=== PATIENT | male | born 2000 | race Caucasian/White ===

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

== ENCOUNTER 2022-07-27 11:47 | Outpatient (REF) | payer OTHER, SELFPAY ==
[2022-07-27 13:16] LABS: Hematocrit 48.8 % (42.0-52.0); Hemoglobin 16.7 g/dl (14.0-18.0); Mean Corpuscular HGB Conc 34.2 g/dl (31.0-36.0); Mean Corpuscular Hemoglobin 30.1 pg (27.0-33.0); Mean Corpuscular Volume 87.9 fL (80.0-98.0); Mean Platelet Volume 10.3 fL (9.4-12.4); Platelet Count 277 X10*3/uL (160-400); Red Blood Count 5.55 X10*6/uL (4.60-5.80); Red Cell Distribution Width 12.6 % (11.0-16.0)
[2022-07-27 13:47] LABS: Alanine Aminotransferase 37 U/L (0-40); Albumin Level 4.6 g/dL (3.5-5.0); Alkaline Phosphatase 110 U/L (39-117); Anion Gap 13 (12-20); Aspartate Amino Transferase 29 U/L (5-37); Bilirubin Total 1.2 mg/dL (0.0-1.0); Blood Urea Nitrogen 11 mg/dL (9-16); Carbon Dioxide 26 mmol/L (22-29); Chloride 108 mmol/L (96-108); Estimated Glomerular Filt Rate > 60; Glucose Fasting 86 mg/dL (60-99); Potassium 4.9 mmol/L (3.3-5.1); Sodium 142 mmol/L (135-145); Total Protein 7.3 g/dL (6.5-8.0)
== END 2022-07-27 11:48 | disposition home or self-care (01) ==
LOC: HO.LAB 11:47
PROVIDERS: PCP Physician Assistant; Visit Provider Physician Assistant
DX: Z13.1 Encounter for screening for diabetes mellitus (principal); F32.A Depression, unspecified
CPT/HCPCS: 36415; 80053; 85027

== ENCOUNTER 2022-09-06 19:13 | Emergency (ER) | payer OTHER, SELFPAY ==
--- NOTE | 2022-09-06 19:34 | ED_ITS ---
HPI - General Adult General Chief complaint: Dizziness Stated complaint: lightheaded ears ringing Time Seen by Provider: 09/06/22 23:21 Source: patient, RN notes reviewed and old records reviewed Mode of arrival: ambulatory Limitations: no limitations History of Present Illness HPI narrative: 22-year-old male presents for evaluation of ?ringing in the ears and lightheadedness. ? Patient has a history of ADD. Starting back in October he started have side effects to his previously prescribed Adderall The medication was subsequently changed to he believes to be Ritalin He reports having had side effects with that as well He was started on your propria on 100 mg daily a few months ago He reports that this has not been helping his ADD symptoms so his doctor had him increase the dose to 300 mg daily This was 5 days ago on Saturday The patient reports that starting 3 days ago he started to have ringing in both of his ears He denies any difficulty hearing or pain in the ears Patient states that 2-3 hours prior to arrival he had an episode of lightheadedness which has since subsided Denies any pain anywhere Related Data Previous Rx's Medication Instructions Recorded bupropion HCl 300 mg 24 hr tablet, 300 mg PO QAM #30 tabs 08/16/22 extended release (Wellbutrin XL) Allergies Allergy/AdvReac Type Severity Reaction Status Date / Time amphetamine [From Adderall] AdvReac Intermediate Fatigued Verified 08/16/22 14:15 dextroamphetamine AdvReac Intermediate Fatigued Verified 08/16/22 14:15 [From Adderall] atomoxetine [From Strattera] AdvReac Mild sexual Verified 08/16/22 14:15 side effects Review of Systems Constitutional: Constitutional: Reports as per HPI, Denies chills, Denies fatigue, Denies fever(s) and Denies headache(s) ENT: Denies otalgia, Denies headache(s), Denies hearing loss and Reports tinnitus Cardiovascular: Cardiovascular: Denies chest pain and Denies dyspnea Respiratory: Respiratory: Denies cough and Denies dyspnea Gastrointestinal: Gastrointestinal: Denies abdominal pain, Denies constipation and Denies vomiting Genitourinary: Genitourinary: Denies difficulty urinating and Denies dysuria Neurologic: Denies headache(s) and Denies focal weakness Endocrine: Endocrine: Denies fatigue PMF Past Medical History Medical History Attention deficit hyperactivity disorder evaluation Surgical History No pertinent past surgical history Family History Family History Father Kidney stone Mother In good health Brother In good health Sister In good health Paternal Grandfather Kidney stone Melanoma Testicular cancer Social History Social History Housing: House Alcohol intake: never Patient Tobacco Use Status: Never used Tobacco e-Cigarette/Vaping Use: Never Used Second Hand Smoke Exposure: No Advance Directives: No Advance Directives Information Provided: Yes service: No Current occupational status: employed Current occupational exposures/hazards: No Cognitive needs: No Hearing needs: No Vision needs: Yes Physical Exam ED Vital Signs: Vital Signs - 24 hr 09/06/22 19:45 Temperature 98.4 F Pulse Rate 97 Respiratory Rate 18 Blood Pressure 149/96 H Pulse Oximetry 98 Oxygen Delivery Method Room Air BMI result Body Mass Index 24.4 Const General: healthy appearing, comfortable, no acute distress, alert and awake Nutritional Appearance: well nourished Orientation/consciousness: patient oriented x3 HENMT Other: There is moderate cerumen impaction of the left ear canal. The visualized portion of the left panic membrane is without abnormality including bulging, erythema. Head: Yes normocephalic and Yes atraumatic Ears: TM normal on the right and TM normal on the left Eyes Eyelids: Yes eyelids normal Conjunctivae: conjunctivae normal Sclerae: sclerae normal Corneas: corneas normal Pupils: Equal, round and reactive pupils present EOM: EOMs intact bilaterally Neck Neck: Yes full ROM Resp Effort & Inspection: normal respiratory effort, able to speak in complete sentences and not labored Skin General skin exam: no rashes or lesions noted and elasticity normal Neuro General: patient oriented x3 Cranial nerves: Yes Equal, round and reactive pupils present and Yes Bilaterally intact EOM present Cognition (Neuro): normal cognition Extrem Other: Moving all extremities well without any obvious deformities Course Course Course Narrative: This is a rapid medical exam: Additional HPI, ROS, PE not included below will be deferred to primary provider. Patient is a 22-year-old male with history of ADHD, MDD, RENNY presenting to the emergency department with complaint of ringing in both ears and today began to develop dizziness/lightheadedness. Denies any headache or vision changes. Reports difficulty focusing on texts on phone. Denies any nausea or vomiting. Reports recently increased dose of bupropion XL one week ago which he is taking for his ADD. Plan: labs, UA Medical Decision Making Medical Decision Making [facility] Narrative: 22-year-old male presents for evaluation of an episode of lightheadedness as well as tinnitus. He had a negative workup in the emergency department today. He is currently asymptomatic in regards to his lightheadedness but still has some ringing in the ears. This is likely attributed to his recent increase in Wellbutrin which was discussed with the patient. He will talk to his doctor tomorrow morning in regards to how to proceed with the medication but I instructed him to not take the medication the morning until he can talk to his [facility] doctor Differential Diagnosis Labyrinthitis Tinnitus Anxiety Otitis media Otitis externa Medication side-effect Lab Data [facility] Lab Attestation statement: I reviewed the patient's lab results. (No leukocytosis, no anemia. BMP within normal limits) 09/06/22 20:40 09/06/22 20:41 Labs: Lab Results 09/06/22 09/06/22 09/06/22 Range/Units 20:40 20:40 20:41 WBC 7.6 (4.8-10.8) X10*3/uL RBC 5.48 (4.60-5.80) X10*6/uL Hgb 16.7 (14.0-18.0) g/dl Hct 47.4 (42.0-52.0) % MCV 86.5 (80.0-98.0) fL MCH 30.5 (27.0-33.0) pg MCHC 35.2 (31.0-36.0) g/dl RDW 12.6 (11.0-16.0) % Plt Count 287 (160-400) X10*3/uL MPV 9.9 (9.4-12.4) fL Immature Gran % (Auto) 0.8 H (0.0-0.4) % Neut % (Auto) 62.8 (45-73) % Lymph % (Auto) 26.1 (20-40) % [place] % (Auto) 8.8 (2-11) % Eos % (Auto) 1.1 (0-4) % Baso % (Auto) 0.4 (0-2) % Lymph # (Auto) 2.0 (1.2-4.9) X10*3/uL [place] # (Auto) 0.7 (0.1-1.2) X10*3/uL Eos # (Auto) 0.1 (0.0-0.4) X10*3/uL Baso # (Auto) 0.0 (0.0-0.2) X10*3/uL Abs Immat Gran (auto) 0.06 H (0.00-0.03) X10*3/uL Absolute Neuts (auto) 4.8 (2.0-8.3) x10*3/uL Absolute Nucleated RBC 0.000 (0.0-0.012) X10*3/uL Nucleated RBC % (auto) 0.0 (0.0-0.2) /100WBC Sodium 138 (135-145) mmol/L Potassium 4.2 (3.3-5.1) mmol/L Chloride 106 (96-108) mmol/L Carbon Dioxide 24 (22-29) mmol/L Anion Gap 12 (12-20) BUN 12 (9-16) mg/dL Creatinine 0.99 (0.5-1.4) mg/dL Estim Creat Clear Calc 121.8 Estimated GFR > 60 Random Glucose 102 (60-115) mg/dL Calcium 9.8 (8.4-10.2) mg/dL Urine Color Yellow Urine Appearance Clear Urine pH 6.0 (5.0-9.0) Ur Specific [place] 1.020 (1.005-1.025) Urine Protein Negative (Neg-Trace) mg/dL Urine Glucose (UA) Negative (Negative) mg/dL Urine Ketones Negative (Negative) mg/dL Urine Blood Trace H (Negative) Urine Nitrite Negative (Negative) Ur Leukocyte Esterase Negative (Negative) Urine RBC 3-5 H (0-2) /HPF Urine WBC 0-5 (0-5) /HPF Ur Squamous Epith Cells 0-2 (0-2) /HPF Urine Bacteria None Seen (None Seen) Hyaline Casts 0-2 (0-2) /LPF Discharge Plan Discharge Clinical Impression: Bilateral tinnitus, Episodic lightheadedness Patient Disposition: Home, Self-Care Instructions: Tinnitus (ED), Lightheadedness (ED) Additional Instructions: Your workup in the emergency department today was reassuring. You do have a moderate amount of ear wax buildup in your left ear This is likely a coincidence as it should not be contributing to your tinnitus The tinnitus is likely from the increase in Wellbutrin as this is a known side effect of this medication Call your primary doctor in the morning to discuss the side effects with him and how to proceed with your treatment for ADD Prescriptions: No Action bupropion HCl [Wellbutrin XL] 300 mg tablet extended release 24 hr 300 mg PO QAM Qty: 30 3RF
[2022-09-06 19:45] VITALS: BP 149/96; PULSE 97; RESP 18; TEMP 36.9; O2SAT 98; BMI 24.4
--- NOTE | 2022-09-06 19:49 | PC.NURSE ---
patient was brought in complaining of lightheadedness patient stated it started 2-3 hours ago
[2022-09-06 20:45] LABS: MANUAL DIFF FLAG NO
[2022-09-06 20:46] LABS: Basophils Percent Auto 0.4 % (0-2); Eosinophils Absolute Auto 0.1 X10*3/uL (0.0-0.4); Eosinophils Percent Auto 1.1 % (0-4); Hematocrit 47.4 % (42.0-52.0); Hemoglobin 16.7 g/dl (14.0-18.0); Imm Gran Abs Auto 0.06 X10*3/uL (0.00-0.03); Imm Gran Pct Auto 0.8 % (0.0-0.4); Lymphocytes Percent Auto 26.1 % (20-40); Mean Corpuscular HGB Conc 35.2 g/dl (31.0-36.0); Mean Corpuscular Hemoglobin 30.5 pg (27.0-33.0); Mean Corpuscular Volume 86.5 fL (80.0-98.0); Mean Platelet Volume 9.9 fL (9.4-12.4); Monocytes Absolute Auto 0.7 X10*3/uL (0.1-1.2); Monocytes Percent Auto 8.8 % (2-11); Neutrophils Absolute Auto 4.8 x10*3/uL (2.0-8.3); Neutrophils Percent Auto 62.8 % (45-73); Platelet Count 287 X10*3/uL (160-400); Red Blood Count 5.48 X10*6/uL (4.60-5.80); Red Cell Distribution Width 12.6 % (11.0-16.0); White Blood Count 7.6 X10*3/uL (4.8-10.8)
[2022-09-06 20:47] LABS: Appearance Urine Clear; Color Urine Yellow; Glucose Urine UA Negative (Negative); Leukocyte Esterase Urine Negative (Negative); Nitrite Urine Negative (Negative); UMIC TRIGGER UACC YES; Urine Blood Trace (Negative); Urine Ketones Negative (Negative); Urine Protein Negative (Neg-Trace)
[2022-09-06 20:49] LABS: Bacteria Urine None Seen (None Seen); Hyaline Casts Urine 0-2 /LPF (0-2); Squamous Epithelial Cell Urine 0-2 /HPF (0-2); WBC Urine 0-5 /HPF (0-5)
[2022-09-06 21:03] LABS: Anion Gap 12 (12-20); Blood Urea Nitrogen 12 mg/dL (9-16); Calcium 9.8 mg/dL (8.4-10.2); Carbon Dioxide 24 mmol/L (22-29); Chloride 106 mmol/L (96-108); Creatinine Clr Calc Pharmacy 121.8; Estimated Glomerular Filt Rate > 60; Glucose Random 102 mg/dL (60-115); Potassium 4.2 mmol/L (3.3-5.1); Sodium 138 mmol/L (135-145)
== END 2022-09-07 00:06 | disposition home or self-care (01) ==
PROVIDERS: Registered Nurse Emergency; Emergency Provider Emergency Medicine; PCP Physician Assistant
DX: H93.13 Tinnitus, bilateral (principal); R42 Dizziness and giddiness; Z79.899 Other long term (current) drug therapy
CPT/HCPCS: 36415; 80048; 81001; 85025; 99282; 99283

== ENCOUNTER 2023-07-01 14:52 | Outpatient (AMB) | payer OTHER, SELFPAY ==
[2023-07-01 14:55] VITALS: BP 132/60; PULSE 65; O2SAT 98; BMI 25.2
--- NOTE | 2023-07-01 14:55 | MHC.PC.OV ---
Vital Signs 07/01/23 14:55 Height 5 ft 10 in Weight 175 lb 8 oz BMI 25.2 BP 132/60 Blood Pressure Location Lt brachial Position Sitting Pulse 65 Pulse Source Pulse Oximeter Pulse Oximetry (%) 98 Oxygen Delivery Method Room Air Intake Visit Reasons: depression Heel Curver Required: No Glue Jointer Operator: Not Required per policy Accompanied by: Self / Same As Patient Allergies amphetamine [From Adderall] Adverse Reaction (Intermediate, Verified 07/01/23 15:04) Fatigued dextroamphetamine [From Adderall] Adverse Reaction (Intermediate, Verified 07/01/23 15:04) Fatigued atomoxetine [From Strattera] Adverse Reaction (Mild, Verified 07/01/23 15:04) sexual side effects Medication List - Last Reconciled 07/01/23 by Richmond Rome PA-C No Known Home Meds Tobacco use date assessed: 07/01/23 Dental Screening Dental Screen Date: 07/01/23 Did you have a dental visit in the last 12 months?: Yes Did you have a dental problem in the last 6 months where you did not have access to dental care?: No Was dental information given to patient?: Patient has dentist HPI depression HPI Details Patient is a 22-year-old male here today for follow-up on his depression. Patient has past medical history significant for ADHD, major depressive disorder and anxiety. Was previously Celexa, Adderall, Strattera for depression anxiety though were not effective and caused him side effects. He reports over the last several weeks experiencing signs of depression such as lack of concentration, lack of motivation, low energy, increase appetite. He is interested in restarting mental health medications to help him with his depression and sleep. Concern--> he does report having been told he has microscopic blood in his urine. Does have a history of nephrolithiasis. Otherwise no urination issues. Will recheck urinalysis and a urine cytology. [facility] Medical History Attention deficit hyperactivity disorder evaluation Surgical History No pertinent past surgical history Family History Father Kidney stone Mother In good health Brother In good health Sister In good health Paternal Grandfather Kidney stone Melanoma Testicular cancer Social History Housing: House Alcohol intake: never Patient Tobacco Use Status: Never used Tobacco e-Cigarette/Vaping Use: Never Used Second Hand Smoke Exposure: No service: No Current occupational status: employed Current occupational exposures/hazards: No Cognitive needs: No Hearing needs: No Vision needs: Yes (glasses) Questionnaire PHQ-9 Over the last 2 weeks, how often have you been bothered by any of the following problems? 1. Little interest or pleasure in doing things: nearly every day 2. Feeling down, depressed, or hopeless: several days 3. Trouble falling or staying asleep, or sleeping too much: nearly every day 4. Feeling tired or having little energy: nearly every day 5. Poor appetite or overeating: nearly every day 6. Feeling bad about yourself - or that you are a failure or have let yourself or your family down: nearly every day 7. Trouble concentrating on things, such as reading the newspaper or watching television: nearly every day 8. Moving or speaking so slowly that other people could have noticed. Or the opposite - being so fidgety or restless that you have been moving around a lot more than usual: nearly every day 9. Thoughts that you would be better off or of hurting yourself in some way: not at all Total score: 22 Depression Screening Interpretation: Positive Depression Screening Follow-up: Existing condition and New Medication prescribed Depression Screening Done: Yes 44294 - PHQ-9 Billing: Yes Source: Developed by Drs. Jordy Wilcox, Jasmyn Gilbert, Sami Schaefer and colleagues, with an educational elieser from [employer]. Thrive Questionnaire Date Thrive assessed: 07/01/23 I am a: Patient What is your living situation today?: I have a steady place to live Within the past 12 months, did the food you bought not last and you didn't have the money to get more?: Never true Within the past 12 months, did you worry whether your food would run out before you got money to buy more?: Never true Do you have trouble paying for medicines?: No Do you have trouble getting transportation to medical appointments?: No Do you have trouble paying your heating and electricity bill?: No Do you have trouble taking care of your child, family member or friend?: No Do you have trouble with day-to-day activities such as bathing, preparing meals, shopping, managing finances, etc.?: No Are you currently unemployed and looking for a job?: No Are you interested in more education?: No Please select the resources that you would like help with: None THRIVE Score: 0 AUDIT C Alcohol Use Questionnaire (AUDIT-C) 1. How often do you have a drink containing alcohol?: Never Total Score: 0 RENNY-7 AMB Questionnaire RENNY-7 Date RENNY - 7 assessed: 07/01/23 Feeling nervous, anxious, or on edge: 1 = Several days Not being able to stop or control worryin = Nearly every day Worrying too much about different things: 3 = Nearly every day Trouble relaxin = Nearly every day Being so restless that it is hard to sit still: 3 = Nearly every day Becoming easily annoyed or irritable: 3 = Nearly every day Feeling afraid as if something awful might happen: 3 = Nearly every day Total RENNY-7 score (0-4 normal; 5-9 mild; 10-14 moderate; 15-21 severe): 19 Source: Developed by Drs. Jordy Wilcox, Jasmyn Gilbert, Sami Schaefer and colleagues, with an educational elieser from [employer]. RENNY-7 Assessment Billing RENNY-7 Assessment Tool: RENNY-7 Assessment 38134 Review of Systems Const Denies headache(s) Eyes Denies loss of vision ENT Denies vertigo, Denies dizziness, Denies headache(s) and Denies sore throat Card Denies chest pain, Denies leg edema and Denies lightheadedness Resp Denies cough, Denies hemoptysis and Denies wheezing GI Denies abdominal pain, Denies melena, Denies constipation, Denies diarrhea and Denies vomiting Denies dysuria, Denies urinary frequency and Denies urinary urgency Musc Denies arthralgias, Denies joint swelling, Denies numbness and Denies tingling Neuro Denies Abnormal speech present, Denies behavioral changes, Denies vertigo, Denies dizziness, Denies headache(s), Denies loss of vision, Denies memory loss, Denies numbness and Denies tingling Psych Denies anxiety, Denies behavioral changes, Denies depression, Denies memory loss and Denies panic attacks Pranay/Lymph Denies easy bleeding and Denies easy bruising Aller/Immun Denies wheezing Physical exam (Primary Care) Vital Signs: Last Vital Signs Pulse 65 07/01/23 14:55 BP 132/60 07/01/23 14:55 Pulse Ox 98 07/01/23 14:55 Oxygen Delivery Method Room Air 07/01/23 14:55 BMI result Body Mass Index 25.2 Tobacco/Smoking Status: Tobacco use Status Tobacco use date assessed 07/01/23 07/01/23 14:57 Patient Tobacco Use Status Never used Tobacco 07/01/23 14:57 e-Cigarette/Vaping Use Never Used 07/01/23 14:57 PHQ-9: PHQ-9 Score PHQ-9: Total score 22 07/01/23 15:03 Depression Screening Interpretation: Positive Depression Screening Follow-up: Existing condition and New Medication prescribed Thrive Assessment: Date of Thrive Assessment Date Thrive assessed 07/01/23 07/01/23 14:57 Const General: healthy appearing, no acute distress, alert and awake Nutritional Appearance: well nourished Orientation/consciousness: oriented to person, oriented to place and oriented to time HENMT Ears: TM's normal bilaterally General nose exam: Normal nasal mucous membranes and turbinates present Eyes Conjunctivae: conjunctivae normal Sclerae: sclerae normal Pupils: Equal, round and reactive pupils present Neck Neck: Yes no lymphadenopathy and Yes no JVD Thyroid: Thyroid normal Carotids: no bruits Resp Effort & Inspection: normal respiratory effort and not tachypneic Auscultation: no crackles, no rales, no rhonchi and no wheezes Cardio Rate: regular rate Rhythm: regular rhythm Heart sounds: no murmurs and normal S1 and S2 GI Palpation (GI): Soft to palpation, nontender, no hepatomegaly and no splenomegaly Auscultation: normal bowel sounds Skin General skin exam: no rashes or lesions noted and dry skin Neuro General: oriented to person, oriented to place and oriented to time Cranial nerves: Yes Equal, round and reactive pupils present Speech: No Abnormal speech present Gait exam (Neuro): Normal gait present Motor exam (neuro): no tremor noted Extrem Right upper extremity: full ROM Left upper extremity: full ROM Right lower extremity: full ROM; no edema Left lower extremity: full ROM; no edema Psych Mental Status: mental status grossly normal Speech and movement: Normal speech and movement present Affect: normal affect Attitude: cooperative Thought process: Normal thought process present Assessment and Plan Assessment & Plan (1) MDD (major depressive disorder), recurrent episode, mild: Code(s): F33.0 - Major depressive disorder, recurrent, mild Plan: Patient's PHQ-9 score positive for depression which has been existing condition for him. He has not interested in speaking with a mental health therapist. He has been on multiple mental health medications though have been ineffective for caused side effect. He was interested in restarting Zoloft has it has been somewhat effective for him in the past. (2) RENNY (generalized anxiety disorder): Code(s): F41.1 - Generalized anxiety disorder Plan: Patient's RENNY-7 score positive for anxiety which has been existing condition for him. As above patient willing to restart SSRI therapy (3) Microscopic hematuria: Code(s): R31.29 - Other microscopic hematuria Plan: Does have a history of microscopic hematuria. Will recheck urinalysis and urine cytology. He does report a family history of nephrolithiasis. Orders: Orders Comprehensive [place]. Panel Fast Today Z13.1 - Encounter for screening for diabetes mellitus Urine Cytology Today R31.29 - Other microscopic hematuria TSH reflex Free T4 Today F33.0 - Major depressive disorder, recurrent, mild UA CC w/rflx Micro + Cult Today R30.0 - Dysuria, R31.29 - Other microscopic hematuria Medications: New sertraline (Zoloft) 50 mg PO DAILY 30 days 30 tabs 1RF F33.0 - Major depressive disorder, recurrent, mild hydroxyzine HCl 10 mg PO BEDTIME 30 days 30 tabs 0RF F41.1 - Generalized anxiety disorder, F41.9 - Anxiety disorder, unspecified Coding Level of Care Code Est Pt Level 4 (16789) Diagnoses MDD (major depressive disorder), recurrent episode, mild F33.0 RENNY (generalized anxiety disorder) F41.1 Microscopic hematuria R31.29 Additional Codes RENNY-7 Assessment Billing - RENNY-7 Assessment Tool: RENNY-7 Assessment 40173 ([id number])
== END 2023-07-01 15:20 | disposition home or self-care (01) ==
PROVIDERS: PCP Physician Assistant; Visit Provider Physician Assistant
DX: R31.29 Other microscopic hematuria (principal); F33.0 Major depressive disorder, recurrent, mild; F41.1 Generalized anxiety disorder
CPT/HCPCS: 96127; 99214

== ENCOUNTER 2023-07-23 12:20 | Outpatient (REF) | payer OTHER, SELFPAY ==
[2023-07-23 13:00] LABS: Urine Cytology See Pathology rpt
[2023-07-23 13:09] LABS: Appearance Urine Clear; Color Urine Yellow; Glucose Urine UA Negative (Negative); Leukocyte Esterase Urine Negative (Negative); Nitrite Urine Negative (Negative); PH 8.5 (5.0-9.0); Specific Gravity - Urine 1.015 (1.005-1.025); Urine Blood Negative (Negative); Urine Ketones Negative (Negative); Urine Protein Negative (Neg-Trace)
[2023-07-23 13:39] LABS: Alanine Aminotransferase 28 U/L (0-40); Albumin Level 4.6 g/dL (3.5-5.0); Alkaline Phosphatase 91 U/L (39-117); Anion Gap 10 (12-20); Aspartate Amino Transferase 19 U/L (5-37); Bilirubin Total 0.5 mg/dL (0.0-1.0); Blood Urea Nitrogen 10 mg/dL (9-16); Calcium 9.5 mg/dL (8.4-10.2); Carbon Dioxide 28 mmol/L (22-29); Chloride 105 mmol/L (96-108); Estimated Glomerular Filt Rate > 60; Glucose Fasting 87 mg/dL (60-99); Potassium 3.9 mmol/L (3.3-5.1); Sodium 139 mmol/L (135-145); Total Protein 7.2 g/dL (6.5-8.0)
[2023-07-23 13:54] LABS: TSH reflex Free T4 1.29 uIU/mL (0.32-4.0)
== END 2023-07-23 12:21 | disposition home or self-care (01) ==
LOC: HO.LAB 12:20
PROVIDERS: PCP Physician Assistant; Visit Provider Physician Assistant
DX: Z13.1 Encounter for screening for diabetes mellitus (principal); R30.0 Dysuria; R31.29 Other microscopic hematuria; F33.0 Major depressive disorder, recurrent, mild
CPT/HCPCS: 36415; 80053; 81003; 84443; 88112

== ENCOUNTER 2023-08-15 15:43 | Outpatient (AMB) | payer OTHER, SELFPAY ==
--- NOTE | 2023-08-15 15:42 | A.OFFPC_ITS ---
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 Accompanied by: Self / Same As Patient Allergies amphetamine [From Adderall] Adverse Reaction (Intermediate, Verified 08/15/23 15:53) Fatigued dextroamphetamine [From Adderall] Adverse Reaction (Intermediate, Verified 08/15/23 15:53) Fatigued atomoxetine [From Strattera] Adverse Reaction (Mild, Verified 08/15/23 15:53) sexual side effects Medication List - Last Reconciled 08/15/23 by Richmond Rome PA-C hydroxyzine HCl 10 mg PO BEDTIME 30 days sertraline (Zoloft) 50 mg PO DAILY 30 days Tobacco use date assessed: 07/01/23 Dental Screening Dental Screen Date: 07/01/23 HPI f/u (telehealth) MDD HPI Details Patient is a 22-year-old male being evaluated today via telephone. At last visit we discussed his depression and anxiety and was willing to start depression medication again. Started sertraline 50 mg which was helpful though felt that the effect has plateaued . Also interested in new medication for his ADHD disorder. Has tried Vyvanse and Adderall in the past though felt there was side effects. [facility] Medical History Attention deficit hyperactivity disorder evaluation Surgical History No pertinent past surgical history Family History Father Kidney stone Mother In good health Brother In good health Sister In good health Paternal Grandfather Kidney stone Melanoma Testicular cancer Social History Housing: House Alcohol intake: never Patient Tobacco Use Status: Never used Tobacco e-Cigarette/Vaping Use: Never Used Second Hand Smoke Exposure: No service: No Current occupational status: employed Current occupational exposures/hazards: No Cognitive needs: No Hearing needs: No Vision needs: Yes (glasses) Questionnaire Thrive Questionnaire Date Thrive assessed: 07/01/23 RENNY-7 AMB Questionnaire RENNY-7 Date RENNY - 7 assessed: 07/01/23 Source: Developed by Drs. Jordy Wilcox, Jasmyn Gilbert, Sami Schaefer and colleagues, with an educational elieser from [employer]. Review of Systems Const Denies headache(s) Eyes Denies loss of vision ENT Denies vertigo, Denies dizziness, Denies headache(s) and Denies sore throat Card Denies chest pain, Denies leg edema and Denies lightheadedness Resp Denies cough, Denies hemoptysis and Denies wheezing GI Denies abdominal pain, Denies melena, Denies constipation, Denies diarrhea and Denies vomiting Denies dysuria, Denies urinary frequency and Denies urinary urgency Musc Denies arthralgias, Denies joint swelling, Denies numbness and Denies tingling Neuro Denies behavioral changes, Denies vertigo, Denies dizziness, Denies headache(s), Denies loss of vision, Denies memory loss, Denies numbness and Denies tingling Psych Denies anxiety, Denies behavioral changes, Denies depression, Denies memory loss and Denies panic attacks Pranay/Lymph Denies easy bleeding and Denies easy bruising Aller/Immun Denies wheezing Physical exam (Primary Care) Tobacco/Smoking Status: Tobacco use Status Tobacco use date assessed 07/01/23 08/15/23 15:42 Patient Tobacco Use Status Never used Tobacco 08/15/23 15:42 e-Cigarette/Vaping Use Never Used 08/15/23 15:42 Thrive Assessment: Date of Thrive Assessment Date Thrive assessed 07/01/23 08/15/23 15:42 Telehealth Telehealth Telehealth Platform: Telephone Location of provider rendering services: practice address Location of patient: address on file Patient Identification confirmed using: Name, : Yes Telehealth method: voice only Patient verbally consented to treatment: Yes Patient verbally consented to billing insurance company: Yes Patient informed of any privacy concerns related to visit: Yes Minutes spent on Phone/Video with Pt.: 11 Assessment and Plan Assessment & Plan (1) MDD (major depressive disorder), recurrent episode, mild: Code(s): F33.0 - Major depressive disorder, recurrent, mild Plan: He reports Zoloft has been effective on reducing his depressive symptoms though feels the effect could be better. Will increase the dose of Zoloft 200 mg. He is now interested in establishing with a mental health therapist. (2) Attention deficit hyperactivity disorder evaluation: Code(s): Z13.39 - Encounter for screening examination for other mental health and behavioral disorders Plan: Renard would like to be treated again for his ADHD. Has tried stimulant medication for his ADHD in the past though did have side effects. Will trial guanfacine Orders: Referrals Counseling Referral F33.0 - Major depressive disorder, recurrent, mild Medications: New sertraline (Zoloft) 100 mg PO DAILY 90 tabs 1RF 90 days F33.0 - Major depressive disorder, recurrent, mild guanfacine 1 mg PO DAILY 30 tabs 1RF 30 days Z13.39 - Encounter for screening examination for other mental health and behavioral disorders Discontinued sertraline (Zoloft) Discontinued Reason: Doctor's Order 50 mg PO DAILY 30 days 30 tabs 1RF F33.0 - Major depressive disorder, recurrent, mild Coding Level of Care Code Tele Est Pt Level 4 (99860) Diagnoses MDD (major depressive disorder), recurrent episode, mild F33.0 Attention deficit hyperactivity disorder evaluation Z13.39
== END 2023-08-16 08:54 | disposition home or self-care (01) ==
LOC: HO.HMGH 15:43
PROVIDERS: PCP Physician Assistant; Visit Provider Physician Assistant
DX: F33.0 Major depressive disorder, recurrent, mild (principal); Z13.39 Encounter for screening examination for other mental health and behavioral disorders
CPT/HCPCS: 99214

== ENCOUNTER 2024-02-10 13:42 | Outpatient (AMB) | payer OTHER, SELFPAY ==
[2024-02-10 13:55] VITALS: BP 128/78; PULSE 85; TEMP 36.3; O2SAT 98; BMI 24.7
--- NOTE | 2024-02-10 13:55 | AM.OFFWIN_ITS ---
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 Pt denies any SOB. Pt states he coughs more especially when taking a deep breath. Patient Tobacco Use Status: Never used Tobacco Allergies amphetamine [From Adderall] Adverse Reaction (Intermediate, Verified 02/10/24 13:56) Fatigued dextroamphetamine [From Adderall] Adverse Reaction (Intermediate, Verified 02/10/24 13:56) Fatigued atomoxetine [From Strattera] Adverse Reaction (Mild, Verified 02/10/24 13:56) sexual side effects HPI AUDIO SPECIALIST cough for several weeks HPI Details This note is constructed using voice recognition software. While every effort has been made to ensure accuracy, four slide machine setter errors may have been included. The patient is a 23 year old male who presents to the clinic today with cough for the past several weeks. He reports that his brother was recently sick coronavirus, he shortly developed upper respiratory infection shortly after that. The majority of his symptoms have resolved, but he is left with a dry cough, worse in the morning or at bedtime. He denies fever, chills, shortness of breath. He has tried cough syrup which has not worked. Additionally he has report of a GI bug that kept him out of work last through Saturday. He is requesting a letter for work for that. He reports those symptoms have completely resolved. [facility] Medical History Attention deficit hyperactivity disorder evaluation Surgical History No pertinent past surgical history Family History Father Kidney stone Mother In good health Brother In good health Sister In good health Paternal Grandfather Kidney stone Melanoma Testicular cancer Social History Housing: House Alcohol intake: never Patient Tobacco Use Status: Never used Tobacco e-Cigarette/Vaping Use: Never Used Second Hand Smoke Exposure: No service: No Current occupational status: employed Current occupational exposures/hazards: No Cognitive needs: No Hearing needs: No Vision needs: Yes (glasses) Review of Systems Const All systems reviewed & are unremarkable except as noted in HPI and below Physical Exam Vital Signs: Last Vital Signs Temp 97.4 F 02/10/24 13:55 Pulse 85 02/10/24 13:55 BP 128/78 02/10/24 13:55 Pulse Ox 98 02/10/24 13:55 Oxygen Delivery Method Room Air 02/10/24 13:55 BMI result Body Mass Index 24.7 Const General: cooperative, healthy appearing, comfortable and no acute distress Orientation/consciousness: patient oriented x3 Limitations: no limitations HEENT Head: Yes normal to inspection Ears: hearing grossly normal bilaterally, external ears normal and TM abnormal retracted General nose exam: Normal external nose present, No nasal discharge present and Abnormal mucous membranes and turbinates present boggy and pale Face and sinus: Yes normal facial exam and Yes sinuses nontender Mouth: Normal oral and palatal mucosa present and moist mucous membranes Throat: Yes tonsils normal, Yes uvula midline, Yes posterior oropharynx abnormal (Erythema), Yes postnasal drainage and Yes cobblestoning Eyes General: appearance normal, both eyes and all related structures Neck Neck: Yes normal visual inspection Resp Effort & Inspection: normal respiratory effort, able to speak in complete sentences, Actively coughing, no respiratory distress, not tachypneic, no tripod positioning and no use of accessory muscles Auscultation: clear to auscultation bilaterally Cardio Rate: regular rate Rhythm: regular rhythm Heart sounds: normal S1 and S2 Skin General skin exam: no rashes or lesions noted Neuro General: patient oriented x3 Extrem General: Yes normal to inspection and Yes no clubbing, cyanosis or edema Assessment & Plan Assessment & Plan (1) Cough: Code(s): R05.9 - Cough, unspecified Qualifiers: Cough type: subacute Qualified Code(s): R05.2 - Subacute cough Plan: X-ray/imaging not indicated at this time. Likely post viral. Supportive measures encouraged and reviewed. Advised patient to try a Flonase nasal spray and second-generation antihistamine such as Zyrtec, Claritin, Harriett or simil ar. Advised consideration of sinus rinse if needed. Advised patient to follow up with primary care provider with worsening or failure to resolve. Plan See above for full details and plan. Coding Level of Care Code Est Pt Level 3 (76866) Diagnoses Subacute cough R05.2 Cough type: subacute
== END 2024-02-10 14:50 | disposition home or self-care (01) ==
PROVIDERS: PCP Physician Assistant; Visit Provider Registered Nurse
DX: R05.2 Subacute cough (principal)

== ENCOUNTER 2024-04-14 15:28 | Outpatient (AMB) | payer OTHER, SELFPAY ==
[2024-04-14 15:43] VITALS: BP 124/70; PULSE 72; TEMP 36.5; O2SAT 98; BMI 25.7
--- NOTE | 2024-04-14 15:43 | A.OFFPC_ITS ---
Vital Signs 04/14/24 15:43 Height 5 ft 10 in Weight 179 lb 6 oz BMI 25.7 BP 124/70 Blood Pressure Location Lt brachial Position Sitting Pulse 72 Pulse Source Pulse Oximeter Temp 97.7 F Temp Source Temporal Artery Scan Pulse Oximetry (%) 98 Oxygen Delivery Method Room Air Intake Visit Reasons: injury to penis Assistant To The Ceo Required: No Accompanied by: Self / Same As Patient Allergies amphetamine [From Adderall] Adverse Reaction (Intermediate, Verified 04/14/24 15:53) Fatigued dextroamphetamine [From Adderall] Adverse Reaction (Intermediate, Verified 04/14/24 15:53) Fatigued atomoxetine [From Strattera] Adverse Reaction (Mild, Verified 04/14/24 15:53) sexual side effects Medication List - Last Reconciled 04/14/24 by Richmond Rome PA-C No Known Home Meds Tobacco use date assessed: 07/01/23 Dental Screening Dental Screen Date: 07/01/23 HPI injury to penis HPI Details The patient is a 23-year-old male presenting with concerns of penile curvature and a snapping sensation experienced recently. Last Saturday, while masturbating, the patient felt a pop or snap in the area of the penis, although it was minor. The patient reports a curvature to the left side. He denies difficulty with urination, no presence of blood in urine, and reports normal ejaculation. The patient suspects it may be Peyronie's disease, which he has heard of before. He has opted not to see a urologist at this time. Additionally, the patient experiences anxiety that has been persistent and exacerbated by the concern of penile curvature. He reports no current use of anxiety medication, having discontinued previous ineffective treatments. He is actively seeking a psychiatrist. [facility] Medical History Attention deficit hyperactivity disorder evaluation Surgical History No pertinent past surgical history Family History Father Kidney stone Mother In good health Brother In good health Sister In good health Paternal Grandfather Kidney stone Melanoma Testicular cancer Social History Housing: House Alcohol intake: never Patient Tobacco Use Status: Never used Tobacco e-Cigarette/Vaping Use: Never Used Second Hand Smoke Exposure: No service: No Current occupational status: employed Current occupational exposures/hazards: No Cognitive needs: No Hearing needs: No Vision needs: Yes (glasses) Questionnaire PHQ-9 Over the last 2 weeks, how often have you been bothered by any of the following problems? 1. Little interest or pleasure in doing things: several days 2. Feeling down, depressed, or hopeless: several days 3. Trouble falling or staying asleep, or sleeping too much: more than half the days 4. Feeling tired or having little energy: more than half the days 5. Poor appetite or overeating: more than half the days 6. Feeling bad about yourself - or that you are a failure or have let yourself or your family down: several days 7. Trouble concentrating on things, such as reading the newspaper or watching television: more than half the days 8. Moving or speaking so slowly that other people could have noticed. Or the op posite - being so fidgety or restless that you have been moving around a lot more than usual: several days 9. Thoughts that you would be better off or of hurting yourself in some way: not at all Total score: 12 Depression Screening Interpretation: Positive Depression Screening Follow-up: Existing condition and Community Mental Health Worker F/U Depression Screening Done: Yes 15905 - PHQ-9 Billing: Yes Source: Developed by Drs. Jordy Wilcox, Jasmyn Gilbert, Sami Schaefer and colleagues, with an educational elieser from [employer]. Thrive Questionnaire Date Thrive assessed: 04/14/24 I am a: Patient What is your living situation today?: I have a steady place to live Within the past 12 months, did the food you bought not last and you didn't have the money to get more?: Never true Within the past 12 months, did you worry whether your food would run out before you got money to buy more?: Never true Do you have trouble paying for medicines?: No Do you have trouble getting transportation to medical appointments?: No Do you have trouble paying your heating and electricity bill?: No Do you have trouble taking care of your child, family member or friend?: No Do you have trouble with day-to-day activities such as bathing, preparing meals, shopping, managing finances, etc.?: No Are you currently unemployed and looking for a job?: No Are you interested in more education?: No Please select the resources that you would like help with: None Currently or been in a relationship where the following occur: No concerns reported THRIVE Score: 0 AUDIT C Alcohol Use Questionnaire (AUDIT-C) 2. How many drinks containing alcohol do you have on a typical day when you are drinking?: 1 or 2 3. How often do you have six or more drinks on one occasion?: Never Total Score: 0 RENNY-7 AMB Questionnaire RENNY-7 Date RENNY - 7 assessed: 04/14/24 Feeling nervous, anxious, or on edge: 3 = Nearly every day Not being able to stop or control worryin = Nearly every day Worrying too much about different things: 2 = More than half the days Trouble relaxin = More than half the days Being so restless that it is hard to sit still: 2 = More than half the days Becoming easily annoyed or irritable: 2 = More than half the days Feeling afraid as if something awful might happen: 2 = More than half the days Total RENNY-7 score (0-4 normal; 5-9 mild; 10-14 moderate; 15-21 severe): 16 Source: Developed by Drs. Jordy Wilcox, Jasmyn Gilbert, Sami Schaefer and colleagues, with an educational elieser from [employer] RENNY-7 Assessment Billing RENNY-7 Assessment Tool: RENNY-7 Assessment 47424 Review of Systems Const Denies headache(s) Eyes Denies loss of vision ENT Denies vertigo, Denies dizziness, Denies headache(s) and Denies sore throat Card Denies chest pain, Denies leg edema and Denies lightheadedness Resp Denies cough, Denies hemoptysis and Denies wheezing GI Denies abdominal pain, Denies melena, Denies constipation, Denies diarrhea and Denies vomiting Denies dysuria, Denies urinary frequency and Denies urinary urgency Musc Denies arthralgias, Denies joint swelling, Denies numbness and Denies tingling Neuro Denies Abnormal speech present, Denies behavioral changes, Denies vertigo, Denies dizziness, Denies headache(s), Denies loss of vision, Denies memory loss, Denies numbness and Denies tingling Psych Denies anxiety, Denies behavioral changes, Denies depression, Denies memory loss and Denies panic attacks Pranay/Lymph Denies easy bleeding and Denies easy bruising Aller/Immun Denies wheezing Physical exam (Primary Care) Vital Signs: Last Vital Signs Temp 97.7 F 04/14/24 15:43 Pulse 72 04/14/24 15:43 BP 124/70 04/14/24 15:43 Pulse Ox 98 04/14/24 15:43 Oxygen Delivery Method Room Air 04/14/24 15:43 BMI result Body Mass Index 25.7 Tobacco/Smoking Status: Tobacco use Status Tobacco use date assessed 07/01/23 04/14/24 15:43 Patient Tobacco Use Status Never used Tobacco 04/14/24 15:43 e-Cigarette/Vaping Use Never Used 04/14/24 15:43 PHQ-9: PHQ-9 Score PHQ-9: Total score 12 04/14/24 16:03 Depression Screening Interpretation: Positive Depression Screening Follow-up: Existing condition and Community Mental Health Worker F/U Thrive Assessment: Date of Thrive Assessment Date Thrive assessed 04/14/24 04/14/24 15:51 Currently or been in a relationship where the following occur: No concerns repo rted Const General: healthy appearing, no acute distress, alert and awake Nutritional Appearance: well nourished Orientation/consciousness: oriented to person, oriented to place and oriented to time HENMT Ears: TM's normal bilaterally General nose exam: Normal nasal mucous membranes and turbinates present Eyes Conjunctivae: conjunctivae normal Sclerae: sclerae normal Pupils: Equal, round and reactive pupils present Neck Neck: Yes no lymphadenopathy and Yes no JVD Thyroid: Thyroid normal Carotids: no bruits Resp Effort & Inspection: normal respiratory effort and not tachypneic Auscultation: no crackles, no rales, no rhonchi and no wheezes Cardio Rate: regular rate Rhythm: regular rhythm Heart sounds: no murmurs and normal S1 and S2 GI Palpation (GI): Soft to palpation, nontender, no hepatomegaly and no sple nomegaly Auscultation: normal bowel sounds Skin General skin exam: no rashes or lesions noted and dry skin Neuro General: oriented to person, oriented to place and oriented to time Cranial nerves: Yes Equal, round and reactive pupils present Speech: No Abnormal speech present Gait exam (Neuro): Normal gait present Motor exam (neuro): no tremor noted Extrem Right upper extremity: full ROM Left upper extremity: full ROM Right lower extremity: full ROM; no edema Left lower extremity: full ROM; no edema Psych Mental Status: mental status grossly normal Speech and movement: Normal speech and movement present Affect: normal affect Attitude: cooperative Thought process: Normal thought process present Coding Level of Care Code Est Pt Level 4 (11436) Diagnoses Peyronie's syndrome N48.6 MDD (major depressive disorder), recurrent episode, mild F33.0 RENNY (generalized anxiety disorder) F41.1 Additional Codes RENNY-7 Assessment Billing - RENNY-7 Assessment Tool: RENNY-7 Assessment 06622 ([id number]) PHQ-9 - 12947 - PHQ-9 Billing: Yes ([id number]) Assessment & Plan Assessment & Plan (1) Peyronie's syndrome: Code(s): N48.6 - Induration penis plastica Category: Medical Plan: we discussed the patient's concern regarding the penile curvature, suspecting Peyronie's Disease, based on the symptoms of a leftward curvature following a snapping sensation. I offered a referral to a urologist, but the patient opted to wait since he is not experiencing significant pain. We discussed potential management options including specialist evaluation and possible non-surgical treatments (2) MDD (major depressive disorder), recurrent episode, mild: Code(s): F33.0 - Major depressive disorder, recurrent, mild Category: Medical Plan: Patient continues to suffer with depression and anxiety. Has tried many mental health medications including meds for ADHD though have not been effective. He is interested in seeing a psychiatrist for formal diagnosis and medication recommendations. (3) RENNY (generalized anxiety disorder): Code(s): F41.1 - Generalized anxiety disorder Category: Medical Plan: Patient's RENNY-7 score positive for anxiety which has been existing condition for him. Has tried SSRIs in the past though have not been effective. Has also tried ADHD medication for to help him with his attention focus though seem to have caused him side effects. He is willing to talk to a psychiatric professional about proper diagnosis and treatment for his psychiatric disorders. Orders: Orders Comprehensive [place]. Panel Fast 04/14/24 Z13.1 - Encounter for screening for diabetes mellitus UA CC w/rflx Micro + Cult 04/14/24 R30.0 - Dysuria, R31.29 - Other microscopic hematuria Referrals Psychiatry Outpatient Consultation Service F33.0 - Major depressive disorder, recurrent, mild
== END 2024-04-14 16:07 | disposition home or self-care (01) ==
PROVIDERS: PCP Physician Assistant; Visit Provider Physician Assistant
DX: N48.6 Induration penis plastica (principal); F33.0 Major depressive disorder, recurrent, mild; F41.1 Generalized anxiety disorder

== ENCOUNTER → 2024-04-14 15:28 | Outpatient (BNVA) | payer OTHER, SELFPAY | PROVIDERS: PCP Physician Assistant; Visit Provider Physician Assistant | DX: N48.6 Induration penis plastica (principal); F33.0 Major depressive disorder, recurrent, mild; F41.1 Generalized anxiety disorder | CPT/HCPCS: 96127 ==

== ENCOUNTER 2024-08-12 14:23 | Outpatient (AMB) | payer OTHER, SELFPAY ==
--- NOTE | 2024-08-12 14:36 | MHC.PC.OV ---
Vital Signs 08/12/24 14:37 Height 5 ft 10 in Weight 173 lb 9 oz BMI 24.9 BP 122/82 Blood Pressure Location Lt brachial Position Sitting Pulse 92 Pulse Source Pulse Oximeter Temp 97.1 F Temp Source Temporal Artery Scan Pulse Oximetry (%) 97 Oxygen Delivery Method Room Air Intake Visit Reasons: Annual Exam Log Chain Worker Required: No Accompanied by: Self / Same As Patient Allergies amphetamine (From Adderall) Adverse Reaction (Intermediate, Verified 08/12/24 15:08) Fatigued dextroamphetamine (From Adderall) Adverse Reaction (Intermediate, Verified 08/12/24 15:08) Fatigued atomoxetine (From Strattera) Adverse Reaction (Mild, Verified 08/12/24 15:08) sexual side effects Medication List - Last Reconciled 08/12/24 by Richmond Rome PA-C No Known Home Meds Tobacco use date assessed: 08/12/24 Dental Screening Dental Screen Date: 08/12/24 Did you have a dental visit in the last 12 months?: Yes Did you have a dental problem in the last 6 months where you did not have access to dental care?: No Was dental information given to patient?: Patient has dentist HPI Annual Exam HPI Details Patient is a 23-year-old male here today for annual physical. Patient does have a history of mental health disorder to which he has tried multiple medications though have not been effective for him. 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 Vaccnine : needs Tdap [facility] Medical History Attention deficit hyperactivity disorder evaluation Surgical History No pertinent past surgical history Family History Father Kidney stone Mother In good health Brother In good health Sister In good health Paternal Grandfather Kidney stone Melanoma Testicular cancer Social History Housing: House Alcohol intake: current Alcohol intake frequency: holidays/special occasions only Patient Tobacco Use Status: Never used Tobacco e-Cigarette/Vaping Use: Never Used Second Hand Smoke Exposure: No service: No Current occupational status: employed Current occupational exposures/hazards: No Cognitive needs: No Hearing needs: No Vision needs: Yes (glasses) Questionnaire PHQ-9 Over the last 2 weeks, how often have you been bothered by any of the following problems? 1. Little interest or pleasure in doing things: not at all 2. Feeling down, depressed, or hopeless: several days 3. Trouble falling or staying asleep, or sleeping too much: nearly every day 4. Feeling tired or having little energy: more than half the days 5. Poor appetite or overeating: nearly every day 6. Feeling bad about yourself - or that you are a failure or have let yourself or your family down: several days 7. Trouble concentrating on things, such as reading the newspaper or watching television: several days 8. Moving or speaking so slowly that other people could have noticed. Or the opposite - being so fidgety or restless that you have been moving around a lot more than usual: more than half the days 9. Thoughts that you would be better off or of hurting yourself in some way: not at all Total score: 13 Depression Screening Interpretation: Positive Depression Screening Follow-up: Existing condition and Declines treatment Depression Screening Done: Yes 77849 - PHQ-9 Billing: Yes Source: Developed by Drs. Jordy Wilcox, Jasmyn Gilbert, Sami Schaefer and colleagues, with an educational elieser from [employer] Thrive Questionnaire Date Thrive assessed: 08/12/24 I am a: Patient What is your living situation today?: I have a steady place to live Within the past 12 months, did the food you bought not last and you didn't have the money to get more?: Never true Within the past 12 months, did you worry whether your food would run out before you got money to buy more?: Never true Do you have trouble paying for medicines?: No Do you have trouble getting transportation to medical appointments?: No Do you have trouble paying your heating and electricity bill?: I choose not to answer this question Do you have trouble taking care of your child, family member or friend?: I choose not to answer this question Do you have trouble with day-to-day activities such as bathing, preparing meals, shopping, managing finances, etc.?: No Are you currently unemployed and looking for a job?: I choose not to answer this question Are you interested in more education?: I choose not to answer this question Please select the resources that you would like help with: None Currently or been in a relationship where the following occur: No concerns reported THRIVE Score: 0 AUDIT C Alcohol Use Questionnaire (AUDIT-C) 1. How often do you have a drink containing alcohol?: Monthly or less 3. How often do you have six or more drinks on one occasion?: Never Total Score: 1 RENNY-7 AMB Questionnaire RENNY-7 Date RENNY - 7 assessed: 08/12/24 Feeling nervous, anxious, or on edge: 3 = Nearly every day Not being able to stop or control worryin = Nearly every day Worrying too much about different things: 3 = Nearly every day Trouble relaxin = Nearly every day Being so restless that it is hard to sit still: 3 = Nearly every day Becoming easily annoyed or irritable: 2 = More than half the days Feeling afraid as if something awful might happen: 3 = Nearly every day Total RENNY-7 score (0-4 normal; 5-9 mild; 10-14 moderate; 15-21 severe): 20 Source: Developed by Drs. Jordy Wilcox, Jasmyn Gilbert, Sami Schaefer and colleagues, with an educational elieser from [employer] RENNY-7 Assessment Billing RENNY-7 Assessment Tool: RENNY-7 Assessment 87206 Review of Systems Const Denies body aches, Denies chills, Denies excessive sweating, Denies fatigue, Denies fever(s) and Denies headache(s) Eyes Denies blurry vision ENT Denies dysphagia, Denies vertigo, Denies dizziness, Denies headache(s), Denies hearing loss and Denies tinnitus Card Denies chest pain, Denies chest pain with activity, Denies syncope, Denies irregular heart rhythm and Denies dyspnea Resp Denies chest congestion, Denies cough, Denies hemoptysis, Denies dyspnea and Denies wheezing GI Denies abdominal pain, Denies melena, Denies hematochezia, Denies coffee ground emesis, Denies dysphagia, Denies diarrhea, Denies nausea and Denies vomiting Denies difficulty urinating, Denies dysuria, Denies urinary frequency, Denies urinary hesitancy and Denies urinary urgency Musc Denies arthralgias, Denies limited range of motion, Denies muscle cramps and Denies muscle weakness Skin/Breast Denies rash and Denies skin ulcer Neuro Denies Abnormal speech present, Denies confusion, Denies vertigo, Denies dizziness, Denies syncope, Denies headache(s), Denies memory loss and Denies seizure-like activity Psych Denies anxiety, Denies confusion, Denies depression, Denies memory loss, Denies panic attacks and Denies paranoia Endo Denies excessive sweating, Denies fatigue, Denies flushing, Denies polydipsia and Denies polyuria Aller/Immun Denies wheezing Physical exam (Primary Care) Vital Signs: Last Vital Signs Temp 97.1 F 08/12/24 14:37 Pulse 92 08/12/24 14:37 BP 122/82 08/12/24 14:37 Pulse Ox 97 08/12/24 14:37 Oxygen Delivery Method Room Air 08/12/24 14:37 BMI result Body Mass Index 24.9 Tobacco/Smoking Status: Tobacco use Status Tobacco use date assessed 08/12/24 08/12/24 14:45 Patient Tobacco Use Status Never used Tobacco 08/12/24 15:10 e-Cigarette/Vaping Use Never Used 08/12/24 15:10 PHQ-9: PHQ-9 Score PHQ-9: Total score 13 08/12/24 16:08 Depression Screening Interpretation: Positive Depression Screening Follow-up: Existing condition and Declines treatment Thrive Assessment: Date of Thrive Assessment Date Thrive assessed 08/12/24 08/12/24 14:44 Currently or been in a relationship where the following occur: No concerns reported Const General: cooperative, comfortable, no acute distress, alert and awake; No confusion Orientation/consciousness: oriented to person, oriented to place, patient oriented x3 and No confusion HENMT Head: Yes normocephalic Ears: external ears normal and TM's normal bilaterally Face and sinus: No sinus tenderness Mouth: Normal oral and palatal mucosa present and tongue normal Teeth and gingiva: dentition normal and gingiva normal Throat: Yes posterior oropharynx normal, Yes tonsils normal and Yes uvula midline Eyes Conjunctivae: conjunctivae normal Sclerae: sclerae normal Pupils: Equal, round and reactive pupils present EOM: EOMs intact bilaterally Direct Ophthalmoscopy: No no photophobia Neck Neck: Yes no lymphadenopathy, No tender and Yes no JVD Thyroid: Thyroid normal Carotids: no bruits Chest Chest palpation & inspection: no tenderness Resp Effort & Inspection: normal respiratory effort, no audible wheezes, not labored and no stridor Auscultation: no crackles, no rales, no rhonchi and no wheezes Cardio Jugular venous distension: no JVD Rate: regular rate, not bradycardic and not tachycardic Rhythm: regular rhythm Bruits: no carotid bruits Peripheral pulses: Peripheral pulses 2+ throughout GI Inspection: Yes normal to inspection, No abdominal wall ecchymosis and No visible herniation Palpation (GI): Soft to palpation, nontender, no guarding, not rigid and No hepatosplenomegaly present Auscultation: normoactive bowel sounds General: Yes no CVA tenderness Back/Spine/Pelvis Back: no CVA tenderness and No back tenderness Cervical Spine: cervical ROM normal Thoracic/Lumbar Spine: thoracic and lumbar spine normal to inspection, straight leg raise negative bilaterally, No thoraco-lumbar ROM limited and No lumbar spinal tenderness Skin Lesions: no lesions Rashes: no rashes Wounds: no wounds Neuro General: oriented to person, oriented to place, patient oriented x3, CN's II-XI intact bilaterally and No confusion Cranial nerves: Yes Equal, round and reactive pupils present and Yes Normal accommodation reflex present Cognition (Neuro): normal cognition Speech: No Abnormal speech present Gait exam (Neuro): Normal gait present Motor exam (neuro): 5/5 motor strength present throughout Extrem Right upper extremity: full ROM; no cyanosis Left upper extremity: full ROM; no cyanosis Right lower extremity: no edema Left lower extremity: no edema Psych Appearance: grossly normal Mental Status: mental status grossly normal Affect: normal affect Attitude: cooperative Thought process: Normal thought process present Immunizations Boostrix Tdap 2.5 Lf unit-8 mcg-5 Lf/0.5 mL intramuscular syringe Performing Provider: Richmond Rome PA-C Performing Location: [facility] Administered by: YULISA Glover on 08/12/24 16:08 Dose Route Admin Location Dispensed Lot Number Expiration Date [facility] Special Education Associate 0.5 mL IM Left Deltoid 0.5 mL [id number] 10/23/26 [id number] [employer] Total Dispensed Waste 0.5 mL 0 % VIS Given Date VIS Provided VIS Publication Date 08/12/24 Single Vaccine 24 Eligibility Eligibility Date Funding Source Not [facility] Eligible 08/12/24 Private Coding Level of Care Code Est Pt Prev Care 18-39y(23565) Diagnoses Annual physical exam Z00.00 RENNY (generalized anxiety disorder) F41.1 MDD (major depressive disorder), recurrent episode, mild F33.0 Additional Codes RENNY-7 Assessment Billing - RENNY-7 Assessment Tool: RENNY-7 Assessment 42093 ([id number]) PHQ-9 - 88464 - PHQ-9 Billing: Yes ([id number]) Assessment & Plan Assessment & Plan (1) Annual physical exam: Code(s): Z00.00 - Encounter for general adult medical examination without abnormal findings Category: Medical Plan: As per HPI (2) RENNY (generalized anxiety disorder): Code(s): F41.1 - Generalized anxiety disorder Category: Medical Plan: Patient's RENNY-7 score positive for anxiety which has been existing condition for him. Has tried treatment and mental health therapy though has not been effective. He feels he is stable at this time. (3) MDD (major depressive disorder), recurrent episode, mild: Code(s): F33.0 - Major depressive disorder, recurrent, mild Category: Medical Plan: Patient's PHQ-9 score positive for depression which has been existing condition for him. Again has tried treatment in the past though has not been effective for him Orders: Orders TDaP Immunization 08/12/24 Z23 - Encounter for immunization
[2024-08-12 14:37] VITALS: BP 122/82; PULSE 92; TEMP 36.2; O2SAT 97; BMI 24.9
--- OUTSIDE RECORDS SUMMARY | 2024-08-12 16:32 | XMS_ITS | Encounter Summary ---
Author Organization [facility] Address [address] [place] [address] Phone Care Team Providers Care Special Delivery Worker Name Role Phone Marilee Harding MD Primary Care Provider [phone] Encounter Details Date Type Department Care Team (Late st Contact Info) Description 10/11/2016 Conversion Encounter [facility] [place] [address] [place] [address] Social History Tobacco Use Types Packs/Day Years Used Date Smoking Tobacco: Never Assessed Sex and Gender Information Value Date Recorded Sex Assigned at Not on file Legal Sex Male 4:22 PM EDT Gender Identity Not on file Sexual Orientation Not on file documented as of this encounter Plan of Treatment Not on file documented as of this encounter Visit Diagnoses Not on filedocumented in this encounter Care Teams Special Delivery Worker Relationship Specialty Start Date End Date Marilee Harding MD [address] [place] [address] PCP - General 10/05/16 06/05/22 documented as of this encounter
== END 2024-08-12 15:26 | disposition home or self-care (01) ==
LOC: HO.HMCH 14:23
PROVIDERS: PCP Physician Assistant; Visit Provider Physician Assistant
DX: Z00.00 Encounter for general adult medical examination without abnormal findings (principal); F41.1 Generalized anxiety disorder; F33.0 Major depressive disorder, recurrent, mild

== ENCOUNTER → 2024-08-12 14:23 | Outpatient (BNVA) | payer OTHER, SELFPAY | PROVIDERS: PCP Physician Assistant; Visit Provider Physician Assistant | DX: Z00.00 Encounter for general adult medical examination without abnormal findings (principal); F41.1 Generalized anxiety disorder; F33.0 Major depressive disorder, recurrent, mild; Z23 Encounter for immunization | CPT/HCPCS: 90471; 90715; 96127 ==

== ENCOUNTER 2024-11-11 08:47 | Outpatient (AMB) | payer OTHER, SELFPAY ==
--- NOTE | 2024-11-11 08:51 | MHC.PC.OV ---
Vital Signs 11/11/24 08:53 Height 5 ft 10 in Weight 179 lb 8 oz BMI 25.8 BP 132/80 Blood Pressure Location Lt brachial Position Sitting Pulse 68 Pulse Source Pulse Oximeter Temp 97.3 F Temp Source Temporal Artery Scan Pulse Oximetry (%) 98 Oxygen Delivery Method Room Air Intake Visit Reasons: constipation/referral psychiatrist Intake Note: Patient is here to follow up on Constipation and referral psychiatrist. Director Of Patient Safety Required: No Safety Teacher: Not Required per policy Accompanied by: Self / Same As Patient Allergies amphetamine (From Adderall) Adverse Reaction (Intermediate, Verified 11/11/24 09:05) Fatigued dextroamphetamine (From Adderall) Adverse Reaction (Intermediate, Verified 11/11/24 09:05) Fatigued atomoxetine (From Strattera) Adverse Reaction (Mild, Verified 11/11/24 09:05) sexual side effects Medication List - Last Reconciled 11/11/24 by Richmond Rome PA-C No Known Home Meds Tobacco use date assessed: 11/11/24 Dental Screening Dental Screen Date: 08/12/24 HPI constipation/referral psychiatrist HPI Details The patient is a 24-year-old male presenting with constipation. The constipation began last Saturday, with the patient noticing difficulty in bowel movements and requiring straining to pass stool. He reported seeing bright red blood in his stool, which was evaluated at urgent care and attributed to constipation. The patient has been using laxatives and stool softeners, and has increased fiber intake to manage the condition. The patient also discussed a history of depression, for which a referral to psychiatry was made in March, but he has not been contacted yet. He has tried various mental health medications, including those for ADHD, without success. There is a suspicion of Autism Spectrum Disorder, but no formal diagnosis has been made. The patient experienced significant stress last month due to the passing of a family member from cancer, which has heightened his anxiety about his own health. He noted increased tension in his midsection, particularly at work, which may be contributing to his gastrointestinal symptoms. [facility] Medical History Attention deficit hyperactivity disorder evaluation Surgical History No pertinent past surgical history Family History Father Kidney stone Mother In good health Brother In good health Sister In good health Paternal Grandfather Kidney stone Melanoma Testicular cancer Social History Housing: House Alcohol intake: current Alcohol intake frequency: holidays/special occasions only Patient Tobacco Use Status: Never used Tobacco e-Cigarette/Vaping Use: Never Used Second Hand Smoke Exposure: No service: No Current occupational status: employed Current occupational exposures/hazards: No Cognitive needs: No Hearing needs: No Vision needs: Yes (glasses) Questionnaire Thrive Questionnaire Date Thrive assessed: 08/05/24 I am a: Patient What is your living situation today?: I have a steady place to live Within the past 12 months, did the food you bought not last and you didn't have the money to get more?: Never true Within the past 12 months, did you worry whether your food would run out before you got money to buy more?: Never true Do you have trouble paying for medicines?: No Do you have trouble getting transportation to medical appointments?: No Do you have trouble paying your heating and electricity bill?: I choose not to answer this question Do you have trouble taking care of your child, family member or friend?: I choose not to answer this question Do you have trouble with day-to-day activities such as bathing, preparing meals, shopping, managing finances, etc.?: No Are you currently unemployed and looking for a job?: I choose not to answer this question Are you interested in more education?: I choose not to answer this question Please select the resources that you would like help with: None Currently or been in a relationship where the following occur: No concerns reported THRIVE Score: 0 RENNY-7 AMB Questionnaire RENNY-7 Date RENNY - 7 assessed: 08/12/24 Source: Developed by Drs. Jordy Wilcox, Jasmyn Gilbert, Sami Schaefer and colleagues, with an educational elieser from [employer]. Review of Systems Const Denies headache(s) Eyes Denies loss of vision ENT Denies vertigo, Denies dizziness, Denies headache(s) and Denies sore throat Card Denies chest pain, Denies leg edema and Denies lightheadedness Resp Denies cough, Denies hemoptysis and Denies wheezing GI Denies abdominal pain, Denies melena, Denies constipation, Denies diarrhea and Denies vomiting Denies dysuria, Denies urinary frequency and Denies urinary urgency Musc Denies arthralgias, Denies joint swelling, Denies numbness and Denies tingling Neuro Denies Abnormal speech present, Denies behavioral changes, Denies vertigo, Denies dizziness, Denies headache(s), Denies loss of vision, Denies memory loss, Denies numbness and Denies tingling Psych Denies anxiety, Denies behavioral changes, Denies depression, Denies memory loss and Denies panic attacks Pranay/Lymph Denies easy bleeding and Denies easy bruising Aller/Immun Denies wheezing Physical exam (Primary Care) Vital Signs: Last Vital Signs Temp 97.3 F 11/11/24 08:53 Pulse 68 11/11/24 08:53 BP 132/80 11/11/24 08:53 Pulse Ox 98 11/11/24 08:53 Oxygen Delivery Method Room Air 11/11/24 08:53 BMI result Body Mass Index 25.8 Tobacco/Smoking Status: Tobacco use Status Tobacco use date assessed 11/11/24 11/11/24 08:57 Patient Tobacco Use Status Never used Tobacco 11/11/24 08:57 e-Cigarette/Vaping Use Never Used 11/11/24 08:57 Thrive Assessment: Date of Thrive Assessment Date Thrive assessed 08/05/24 11/11/24 08:57 Currently or been in a relationship where the following occur: No concerns reported Const General: healthy appearing, no acute distress, alert and awake Nutritional Appearance: well nourished Orientation/consciousness: oriented to person, oriented to place and oriented to time [facility] Ears: TM's normal bilaterally General nose exam: Normal nasal mucous membranes and turbinates present Eyes Conjunctivae: conjunctivae normal Sclerae: sclerae normal Pupils: Equal, round and reactive pupils present Neck Neck: Yes no lymphadenopathy and Yes no JVD Thyroid: Thyroid normal Carotids: no bruits Resp Effort & Inspection: normal respiratory effort and not tachypneic Auscultation: no crackles, no rales, no rhonchi and no wheezes Cardio Rate: regular rate Rhythm: regular rhythm Heart sounds: no murmurs and normal S1 and S2 GI Palpation (GI): Soft to palpation, nontender, no hepatomegaly and no splenomegaly Auscultation: normal bowel sounds Skin General skin exam: no rashes or lesions noted and dry skin Neuro General: oriented to person, oriented to place and oriented to time Cranial nerves: Yes Equal, round and reactive pupils present Speech: No Abnormal speech present Gait exam (Neuro): Normal gait present Motor exam (neuro): no tremor noted Extrem Right upper extremity: full ROM Left upper extremity: full ROM Right lower extremity: full ROM; no edema Left lower extremity: full ROM; no edema Psych Mental Status: mental status grossly normal Speech and movement: Normal speech and movement present Affect: normal affect Attitude: cooperative Thought process: Normal thought process present Coding Level of Care Code Est Pt Level 3 (38793) Diagnoses Other constipation K59.09 Constipation type: other constipation type Bright red blood per rectum K62.5 Assessment & Plan Assessment & Plan (1) Constipation: Code(s): K59.00 - Constipation, unspecified Category: Medical Qualifiers: Constipation type: other constipation type Qualified Code(s): K59.09 - Other constipation Plan: The patient is advised to continue using laxatives and stool softeners as needed to manage constipation. Increasing dietary fiber and maintaining adequate hydration are recommended to facilitate bowel movements. If symptoms persist, further evaluation may be necessary. (2) Bright red blood per rectum: Code(s): K62.5 - Hemorrhage of anus and rectum Category: Medical Plan: Suspect hemorrhoid versus rectal fissure, advised on increasing fiber and trying a stool softener. No family history of colon cancer. If symptoms do not resolve refer to gastro for possible colonoscopy. Orders: Orders Complete Blood Count no Diff 11/11/24 R31.29 - Other microscopic hematuria Referrals Counseling Referral F33.0 - Major depressive disorder, recurrent, mild Psychiatry Outpatient Consultation Service F33.0 - Major depressive disorder, recurrent, mild
[2024-11-11 08:53] VITALS: BP 132/80; PULSE 68; TEMP 36.3; O2SAT 98; BMI 25.8
--- OUTSIDE RECORDS SUMMARY | 2024-11-11 10:14 | XMS_ITS | Encounter Summary ---
Author Organization [facility] Address [address] [place] [address] Phone Care Team Providers Care Sales Support Rep Name Role Phone Marilee Harding MD Primary Care Provider [phone] Encounter Details Date Type Department Care Team (Late st Contact Info) Description 10/11/2016 Conversion Encounter [facility] [place] [address] [place] [address] Social History Tobacco Use Types Packs/Day Years [...] on filedocumented in this encounter Care Teams Sales Support Rep Relationship Specialty Start Date End Date Marilee Harding MD [address] [place] [address] PCP - General 10/05/16 06/05/22 documented as of this encounter
--- OUTSIDE RECORDS SUMMARY | 2024-11-11 10:14 | XMS_ITS | Clinical Summary ---
Author Organization [facility] Address [address] [place] [address] Phone Care Team Providers Care Cementer Machine Name Role Phone Unavailable Primary Care Provider Unavailabl e Immunizations Immunization Administration Dates Next Due DTaP 5 09/07/2005,09/28/2003,03/21/2002 ,01/15/2002,2001 Hep B, ped/adol 10/19/2002,2001,2001 Hib (PRP-T) 09/07/2005,03/21/2002,01/15/2002 ,2001 IPV 09/07/2005,09/23/2002,01/15/2002 ,2001 MMR 09/07/2005,09/28/2003 Varicella 10/23/2006,09/23/2002 Family History Relation Name Status Comments Father Alive Father: Alive a nd well Half-Sister Alive Half sister (M) : Alive and well, Alive and well Mother Alive Mother: Alive a nd well Social History Tobacco Use Types Packs/Day Years Used Date Smoking Tobacco: Never Assessed Sex and Gender Information Value Date Recorded Sex Assigned at Not on file Legal Sex Male 4:22 PM EDT Gender Identity Not on file Sexual Orientation Not on file Plan of Treatment Health Maintenance Due Date Last Done Comments DTaP,Tdap,and Td Vaccines (6 - Tdap) 2012 09/07/2005, 09/28/2003, 03/21/2002, Additional history exists HPV Vaccines (1 - Male 3-dose series) 2016 Men B Vaccine (1 of 2 - Standard) 2017 Influenza Vaccines (#1) 2024 COVID-19 Vaccine (1 - season) 2024 Hepatitis B Vaccines Completed 10/19/2002, 2001, 2001 HIB Vaccines Completed 09/07/2005, 02/26, 01/15/2002, Additional history exists IPV Vaccines Completed 09/07/2005, 08/27, 01/15/2002, Additional history exists MMR Vaccines Completed 09/07/2005, 09/28/2003 Varicella Vaccines Completed 10/23/2006, 09/23/2002 Hepatitis A Vaccines Aged Out No long er eligible based on patient's age to complete this topic Meningococcal Vaccine Aged Out No bita michel eligible based on patient's age to complete this topic Pneumococcal Vaccine Aged Out No long er eligible based on patient's age to complete this topic
== END 2024-11-11 09:20 | disposition home or self-care (01) ==
LOC: HO.HMCH 08:48
PROVIDERS: PCP Physician Assistant; Visit Provider Physician Assistant
DX: K59.09 Other constipation (principal); K62.5 Hemorrhage of anus and rectum